=== PATIENT | female | born 1990 | race Caucasian/White ===

== ENCOUNTER → 2021-05-21 14:07 | Outpatient (CLI) | payer MEDICAID, SELFPAY ==
[2021-05-21 14:33] LABS: Absolute Lymphocyte Count 1.46 X10^3/uL (0.83-4.51); Absolute Neutrophil Count 8.1 X10^3/uL (2.0-7.7); Basophil# 0.02 X10^3/uL; Basophil% 0.2 % (0-1); Eosinophil# 0.03 X10^3/uL; Eosinophils% 0.3 % (0-5); Hematocrit 36.5 % (37-47); Hemoglobin 11.9 g/dL (12.0-15.0); Lymphocyte # 1.46 X10^3/ul (0.83-4.51); Lymphocyte % 14.3 % (19-41); Mean Corp Hgb Conc 32.6 g/dL (32-36); Mean Corpuscular Hgb 28.2 pg (27.0-32.0); Mean Corpuscular Volume 86.5 fL (81-99); Mean Platelet Vol. 9.8 fl (6.2-12.0); Monocyte# 0.58 X10^3/uL; Monocyte% 5.7 % (0-10); NRBC Flagged by Analyzer 0 % (0-5); Neutrophil # 8.09 X10^3/uL (2.7-7.7); Neutrophil % 79.1 % (47-70); Platelet Count 272 K/mm3 (150-450); RBC Distribution Width CV 12.8 % (11.6-14.6); RBC Distribution Width SD 40.2 fl (35.1-43.9); Red Blood Count 4.22 M/mm3 (4.2-5.4); White Blood Count 10.2 K/mm3 (4.4-11.0)
[2021-05-21 15:56] LABS: HIV - WCH Non-Reactive (Nonreactive); Hepatitis B Surface Antigen Non-Reactive (Nonreactive); Hepatitis C Antibody Non-Reactive (Nonreactive); Rubella IgG Reactive (Nonreactive); Syphilis Antibodies Non-reactive
[2021-05-24 16:06] LABS: Gonococcus By Nucleic Acid AMP Negative (Negative)
[2021-05-24 16:07] LABS: Chlamydia By Nucleic Acid AMP Positive (Negative)
[2021-05-26 14:56] LABS: HPV APTIMA, High Risk Negative (Negative)
== END ==
PROVIDERS: Visit Provider Student in an Organized Health Care Education/Training Program
DX: Z34.81 Encounter for supervision of other normal pregnancy, first trimester (principal)
CPT/HCPCS: 85025; 86703; 86762; 86780; 86803; 87086; 87088; 87340; 87491; 87591; 87624; 88175; G0145

== ENCOUNTER 2021-07-29 15:18 | Outpatient (CLI) | payer MEDICAID, SELFPAY ==
[2021-07-31 22:07] LABS: Chlamydia By Nucleic Acid AMP Negative (Negative)
[2021-08-01 16:19] LABS: Gonococcus By Nucleic Acid AMP Negative (Negative)
== END 2021-07-29 23:59 | disposition home or self-care (01) ==
PROVIDERS: Visit Provider Obstetrics & Gynecology
DX: Z34.82 Encounter for supervision of other normal pregnancy, second trimester (principal); A56.00 Chlamydial infection of lower genitourinary tract, unspecified
CPT/HCPCS: 87491; 87591

== ENCOUNTER 2021-10-01 11:05 | Outpatient (CLI) | payer MEDICAID, SELFPAY ==
[2021-10-01 11:50] LABS: Hemoglobin 11.1 g/dL (12.0-15.0); Mean Corp Hgb Conc 32.6 g/dL (32-36); Mean Corpuscular Hgb 28.5 pg (27.0-32.0); Mean Corpuscular Volume 87.2 fL (81-99); Mean Platelet Vol. 9.9 fl (6.2-12.0); Platelet Count 241 K/mm3 (150-450); RBC Distribution Width CV 12.7 % (11.6-14.6); RBC Distribution Width SD 39.8 fl (35.1-43.9); White Blood Count 8.7 K/mm3 (4.4-11.0)
[2021-10-01 12:38] LABS: Glucose Challenge Gest 1H 50g 102 mg/dL (70-140)
== END 2021-10-01 23:59 | disposition home or self-care (01) ==
PROVIDERS: Visit Provider Obstetrics & Gynecology
DX: Z34.82 Encounter for supervision of other normal pregnancy, second trimester (principal)
CPT/HCPCS: 36415; 82950; 85027

== ENCOUNTER 2021-11-26 16:48 | Outpatient (CLI) | payer MEDICAID, SELFPAY ==
[2021-11-26 18:02] LABS: ALB/GLOB Ratio 0.7 RATIO (0.9-2.4); AST(SGOT) 19 U/L (15-37); Alanine Aminotransfer ALT/SGPT 19 U/L (13-56); Albumin, Serum 2.9 g/dL (3.2-5.0); Alkaline Phosphatase 191 U/L (45-117); Anion Gap 7 (5-15); BUN 5 mg/dL (7-18); BUN/Creat Ratio 7.4 RATIO (10-20); Calcium,Total 8.9 mg/dL (8.5-10.1); Chloride 104 mmol/L (98-107); Creatinine, Serum 0.68 mg/dL (0.55-1.02); EST Glomerular Filtration Rate 108 mL/min (>60); Est Glom Filt Rate - Afr Amer 131 mL/min (>60); Globulin 4.4 g/dL (2.2-4.2); Glucose 81 mg/dL (74-106); Potassium 3.5 mmol/L (3.5-5.1); Protein, Total 7.3 g/dL (6.4-8.2); Sodium Level 136 mmol/L (136-145)
[2021-11-26 19:54] LABS: Amphetamine Urine VISTA NEGATIVE (<1000 ng/mL); Barbiturate Urine VISTA NEGATIVE (< 200 ng/mL); Benzodiazepine Urine VISTA NEGATIVE (< 200 ng/mL); Cocaine Urine VISTA NEGATIVE (< 300 ng/mL); Ecstacy Urine VISTA NEGATIVE (< 500 ng/mL); Methadone Urine VISTA NEGATIVE (< 300 ng/mL); PCP Urine VISTA NEGATIVE (< 25 ng/mL); THC Urine VISTA NEGATIVE (< 50 ng/mL); Vista UDS pH Range 7
[2021-11-28 22:07] LABS: Chlamydia By Nucleic Acid AMP Negative (Negative)
[2021-11-28 22:13] LABS: Gonococcus By Nucleic Acid AMP Negative (Negative)
== END 2021-11-26 23:59 | disposition home or self-care (01) ==
PROVIDERS: Visit Provider Student in an Organized Health Care Education/Training Program
DX: Z34.83 Encounter for supervision of other normal pregnancy, third trimester (principal); Z36.85 Encounter for antenatal screening for Streptococcus B
CPT/HCPCS: 36415; 80053; 80307; 87077; 87081; 87086; 87088; 87186; 87491; 87591

== ENCOUNTER 2022-01-06 18:40 | Inpatient (IN) | payer MEDICAID, SELFPAY ==
--- NOTE | 2022-01-06 20:13 | PCM.HP.BLA ---
History and Physical Date of Admission: 01/06/22 31-year-old at 40/2, CHRISTAL 01/04/2022 by LMP, admitted for induction of labor. Denies regular contractions, leaking of fluid. Reports movement. Denies vaginal bleeding. Denies headache's/vision changes, chest pain or shortness of breath, nausea or vomiting, diarrhea or constipation, fevers or chills. complicated by: GBS bacteria, resolved low-lying placenta, depression without counseling follow-up, positive chlamydia in with negative test of cure, concern for microcephaly on ultrasound however MFM consultation noted head circumference within normal limits. [employer] AND [employer]ERK History: 06/25/15 female ([facility]) 07/18/16 male ([facility]) Medical history: 1. Anxiety/depression Surgery 1. Removal front teeth 2. Right hand surgery 3. Section D&C for delayed hemorrhage 2015 Social history: Former tobacco, denies alcohol or drug use Family history: Denies family history of blood clots or bleeding disorders Allergies: Keflex causes mild itching Medications: 1. Pepcid 2. Zoloft 3. vitamin Review of systems: Negative otherwise stated above Physical exam Vitals pending General: No acute distress HEENT: Normal cephalic/atraumatic, PERRLA Cardiorespiratory: No increased effort, heart rate regular Abdomen: Soft nontender, gravid Extremities: No edema Neurologic: Cranial nerves II through XII grossly intact, no focal deficits Musculoskeletal: Strength 5 out of 5 throughout all extremities Cervical exam: Pending labs: GBS positive Gonorrhea/chlamydia on 11/26/2021 negative Hepatitis C/hepatitis B negative/negative HIV negative Syphilis nonreactive Rubella immune AB+ heart rate/toco pending Assessment/plan:31-year-old at 40/2, CHRISTAL 01/04/2022 by LMP, admitted for induction of labor. complicated by: GBS ,depression, positive chlamydia in with negative test of cure, concern for microcephaly on ultrasound however MFM consultation noted head circumference within normal limits. ?Admit to labor and delivery for induction of labor ? Cytotec induction based on last cervical exam in office on December 30 ? Social service consult for depression and lack of follow-up with counseling ? Negative chlamydia in November 2021 ? Penicillin for GBS prophylaxis
[2022-01-07] VITALS (48 sets, daily range): BP systolic 99–131; BP diastolic 56–82; PULSE 60–99; RESP 16; TEMP 36.3–36.6; O2SAT 93–100; BMI 35.4
[2022-01-07] MEDS: Lactated Ringers 1,000 ML 50 ML IV (03:15)
[2022-01-07 03:31] LABS: Absolute Lymphocyte Count 1.75 X10^3/uL (0.83-4.51); Absolute Neutrophil Count 7.5 X10^3/uL (2.0-7.7); Basophil# 0.02 X10^3/uL; Basophil% 0.2 % (0-1); Eosinophil# 0.06 X10^3/uL; Eosinophils% 0.6 % (0-5); Hematocrit 30.7 % (37-47); Hemoglobin 9.4 g/dL (12.0-15.0); Lymphocyte # 1.75 X10^3/ul (0.83-4.51); Lymphocyte % 17.2 % (19-41); Mean Corp Hgb Conc 30.6 g/dL (32-36); Mean Corpuscular Volume 84.8 fL (81-99); Mean Platelet Vol. 9.8 fl (6.2-12.0); Monocyte# 0.81 X10^3/uL; NRBC Flagged by Analyzer 0 % (0-5); Neutrophil # 7.46 X10^3/uL (2.7-7.7); Neutrophil % 73.4 % (47-70); Platelet Count 276 K/mm3 (150-450); RBC Distribution Width CV 14.7 % (11.6-14.6); RBC Distribution Width SD 45.2 fl (35.1-43.9); Red Blood Count 3.62 M/mm3 (4.2-5.4); White Blood Count 10.2 K/mm3 (4.4-11.0)
[2022-01-07] MEDS: miSOPROStol 25 MCG TABLET VAGINAL ×2 (04:42→08:45)
[2022-01-07] MEDS: 0.9% Saline Lock 10 ML Syringe IV (08:42)
[2022-01-07] MEDS: Penicillin G 3,000,000 Units 50 ML 100 UNITS IV (12:59)
[2022-01-07] MEDS: LACTATED RINGERS 500 ML 999 ML IV ×2 (13:34→15:35)
[2022-01-07] MEDS: fentaNYL-bupivacaine (epidural) 100 ML BAG EPIDURAL (14:35)
[2022-01-07] MEDS: Oxytocin 30 units/NS 500 ml 30 UNITS/500 ML IV.SOLN IV (14:40)
--- NOTE | 2022-01-07 14:59 | PCM.PN.OB ---
Subjective Subjective Patient comfortable with epidural. Objective Data Objective Data Vital Signs: Vital Signs Temp Pulse BP Pulse Ox 97.8 F 83 119/66 97 01/07/22 13:59 01/07/22 14:55 01/07/22 14:55 01/07/22 14:55 Weight: 90.718 kg Body Mass Index (BMI) 35.4 Intake & Output: Intake and Output for Last 24 Hours 01/05/22 01/06/22 01/07/22 23:59 23:59 23:59 Intake Total 1225.83 / 1225.83 Balance 1225.83 / 1225.83 Lab / Micro Data Attestation: I reviewed the patient's lab results. Result Diagrams: 01/07/22 03:15 Labs: Laboratory Results - last 24 hr 01/07/22 03:15: WBC 10.2, RBC 3.62 L, Hgb 9.4 L, Hct 30.7 L, MCV 84.8, MCH 26.0 L, MCHC 30.6 L, RDW Std Deviation 45.2 H, RDW Coeff of Josefa 14.7 H, Plt Count 276, MPV 9.8, Immature Gran % (Auto) 0.600, Neut % (Auto) 73.4 H, Lymph % (Auto) 17.2 L, [place] % (Auto) 8.0, Eos % (Auto) 0.6, Baso % (Auto) 0.2, Absolute Neuts (auto) 7.5, Absolute Lymphs (auto) 1.75, Nucleated RBC % 0 01/07/22 03:15: Blood Type AB POSITIVE, Antibody Screen NEGATIVE Micro: Microbiology 01/07/22 03:25 Nasal Secretion SARS-CoV-2 Antigen (Rapid) - Final Physical Exam Const alert, oriented x3 and no apparent distress Resp normal respiratory effort Narrative: 3-4 cm/6/-2, AROM clear fluid NST FHR Rate Baby A Baseline: 145 Variability:: Moderate Accelerations:: 15 x 15 Decelerations:: None FHR Category:: Category I Assessment & Plan (1) Active labor at term: PLAN: 31-year-old at 40/3 weeks continued induction of labor at term. Patient now comfortable with epidural. Will start Pitocin. AROM clear fluid. Patient making cervical change. Category 1 tracing. Continue induction of labor. Anemia of . Continue iron supplementation.
[2022-01-07] MEDS: Oxytocin 30 units/NS 500 ml 30 UNITS/500 ML IV.SOLN 334 UNITS IV (16:44)
--- NOTE | 2022-01-07 16:52 | EX.PCM.OBRPT ---
Maternal Data Information Final CHRISTAL: 01/04/22 Vaginal Delivery Maternal Presentation Maternal Presentation: Elective Induction Operative Information Date of Procedure: 01/07/22 Pre-Operative Diagnosis: Leger intrauterine at term Post-Operative Diagnosis: Leger intrauterine at term Surgery / Procedure Performed: Spontaneous Vaginal Delivery Type of Anesthesia: Epidural Estimated Blood Loss: 300 cc Findings Description of Procedure: Spontaneous vaginal delivery of viable infant male. Nuchal cord x1, loose, delivered through. Baby to mom. Cord clamped and cut. Spontaneous delivery of placenta. First-degree laceration repaired in usual fashion, hemostatic. A Gender: Male (1 minute): 8 (5 minute): 9
[2022-01-07] MEDS: Ibuprofen 600 MG Tablet PO (21:21)
[2022-01-08 00:20] VITALS: BP 110/62; PULSE 72; RESP 16; TEMP 36.6; O2SAT 96
[2022-01-08 04:39] VITALS: BP 110/65; PULSE 55; RESP 17; TEMP 36.6; O2SAT 98
[2022-01-08] MEDS: Ibuprofen 600 MG Tablet PO (05:18)
[2022-01-08 08:39] VITALS: BP 100/64; PULSE 59; RESP 16; TEMP 36.6; O2SAT 98
--- NOTE | 2022-01-08 10:04 | PCM.PN.OB ---
Subjective Subjective Patient without complaints. Breast-feeding going well. Wants to go home today if baby is able to go. Objective Data Objective Data Vital Signs: Vital Signs Temp Pulse Resp BP Pulse Ox O2 Del Method 97.9 F 59 L 16 100/64 98 Room Air 01/08/22 08:39 01/08/22 08:39 01/08/22 08:39 01/08/22 08:39 01/08/22 08:39 01/08/22 08:39 Oxygen Delivery Method Room Air Weight: 200 lb Body Mass Index (BMI) 35.4 Intake & Output: Intake and Output for Last 24 Hours 01/06/22 01/07/22 01/08/22 23:59 23:59 23:59 Intake Total 2643.29 / 2643.29 Output Total 650 / 1150 500 / 500 Balance 1993.29 / 1493.29 -500 / -500 Lab / Micro Data Result Diagrams: 01/07/22 03:15 Micro: Microbiology 01/07/22 03:25 Nasal Secretion SARS-CoV-2 Antigen (Rapid) - Final Assessment & Plan (1) Spontaneous vaginal delivery: PLAN: Doing well postoperative day #1 status post routine spontaneous vaginal delivery. Will discharge to home today with routine instructions if baby is able to go.
--- NOTE | 2022-01-08 10:06 | DCINST_ITS ---
Discharge Instructions Diet Discharge Diet: No restrictions Activity Discharge Activity: May Drive (In 1 to 2 days if not taking narcotic pain medication), May Shower and May Take a Tub Bath May resume sexual activity in: 4-6 weeks Additional Activity Instructions:: Nothing in the vagina for 4-6 weeks. You may return to work/school in 6 weeks. Dressing / Incision Call your doctor if you observe: Fever of 101 or Higher, Inability to urinate, Inability to have a bowel movement and Using more than 1 pad per hour Follow Up Care Please Follow Up With: Alie Jackman DO When: Call [phone] to make an appointment with your doctor in 6 weeks. Test Results: Test results from this visit will be discussed in further detail at your follow- up appointment, if applicable. Discharge Plan Admission Admit Date/Time: 01/06/22 18:40 Primary Reason for Your Visit: Vaginal Delivery Attending Provider: Alie Jackman Primary Care Provider: Roselyn Alaniz NP Discharge Orders/Prescriptions Prescriptions: No Action Vitamins 1 tab PO DAILY ferrous sulfate [Iron (ferrous sulfate)] 325 MG tablet 325 mg PO BIDCM Qty: 60 1RF Referrals / Follow Up: Roselyn Alaniz NP, DISABILITY REPRESENTATIVE-C [Primary Care Provider] - Disposition Disposition (needs filled in before D/C Order can be placed): Home, Self Care
[2022-01-08 12:10] VITALS: BP 102/67; PULSE 57; RESP 18; TEMP 36.4; O2SAT 97
[2022-01-08 16:38] VITALS: BP 110/75; PULSE 67; RESP 18; TEMP 36.4; O2SAT 98
== END 2022-01-08 18:10 | disposition home or self-care (01) | DRG 560 ==
PROVIDERS: Admitting Provider Student in an Organized Health Care Education/Training Program; PCP Nurse Practitioner Family; Visit Provider Student in an Organized Health Care Education/Training Program
DX: O99.02 Anemia complicating childbirth (principal); Z37.0 Single live birth; O98.82 Other maternal infectious and parasitic diseases complicating childbirth; F41.9 Anxiety disorder, unspecified; O99.344 Other mental disorders complicating childbirth; F32.A Depression, unspecified; Z79.899 Other long term (current) drug therapy; B95.1 Streptococcus, group B, as the cause of diseases classified elsewhere; Z86.19 Personal history of other infectious and parasitic diseases; Z3A.40 40 weeks gestation of pregnancy; O69.81X0 Labor and delivery complicated by cord around neck, without compression, not applicable or unspecified; O70.0 First degree perineal laceration during delivery
CPT/HCPCS: 59025; 59050; 85025; 86850; 86900; 86901; 87426; 99218; J7120; A4216; G0378